=== PATIENT | female | born 1980 | race Caucasian/White ===

== ENCOUNTER 2019-06-25 10:34 | Emergency (ER) | payer OTHER ==
[~2019-06-25] VITALS: Ht 170.2 cm; Wt 72.6 kg
[2019-06-25 10:55] VITALS: BP 113/85
[2019-06-25] MEDS ORDERED: CONTRAVE ER 8-1 EACH PO (11:00)
[2019-06-25] MEDS ORDERED: VYVANSE50 MG PO (11:00)
[2019-06-25] MEDS ORDERED: SYNTHROID175 MCG PO (11:00)
[2019-06-25] MEDS ORDERED: VENLAFAXIN37.5 MG/1 PER TUBE (11:01)
[2019-06-25] MEDS ORDERED: MAGIC MOUTHWASH SWISH&SPIT (11:14)
[2019-06-25] MEDS ORDERED: ULTRAM 50MG TAB50 MG PO (11:14)
== END 2019-06-25 12:39 | disposition home or self-care (01) ==
LOC: ER 10:34
DX: K12.1 Other forms of stomatitis (principal); Z98.890 Other specified postprocedural states; Z90.89 Acquired absence of other organs; Z85.850 Personal history of malignant neoplasm of thyroid